=== PATIENT | female | born 1960 | race Caucasian/White ===

== ENCOUNTER 2022-12-13 06:19 | Day surgery (SDC) | payer BC ==
[2022-12-13] MEDS ORDERED: Lactated Ringers 1,000 ML IV ONE (06:56)
[2022-12-13] MEDS ORDERED: CEFAZOLIN 2 GM-D5W BAG** 2 GM/50 ML ML IV ONE (06:56)
[2022-12-13] MEDS ORDERED: Lactated Ringers 1,000 ML IV SCH (07:00)
[2022-12-13] MEDS ORDERED: Pepcid 20 MG VIAL IV ONE ×2 (07:03→07:09)
[2022-12-13] MEDS ORDERED: Transderm Scop 1.5MG Patch TOP PRN (07:03)
[2022-12-13] MEDS ORDERED: Transderm Scop 1.5MG Patch ONE (07:09)
[2022-12-13] MEDS ORDERED: CEFAZOLIN 2 GM-D5W BAG** 2 GM/50 ML ML IV SCH (07:30)
[2022-12-13] MEDS ORDERED: Zofran 4 MG/2 ML VIAL ONE (07:42)
[2022-12-13] MEDS ORDERED: DIPRIVAN 200 MG/20 ML IV ONE (07:42)
[2022-12-13] MEDS ORDERED: Versed 2 MG/2 ML Injection ONE (07:42)
[2022-12-13] MEDS ORDERED: Decadron 4 MG INJ ONE (07:42)
[2022-12-13] MEDS ORDERED: TORAdol 30 mg Injection ONE (07:42)
[2022-12-13] MEDS ORDERED: SUBLIMAZE 100 MCG/2 ML ONE (07:42)
[2022-12-13] MEDS ORDERED: Xylocaine-Mpf 2% 5 Ml Vial ONE (07:42)
[2022-12-13] MEDS ORDERED: Marcaine Mpf 0.5% Vial 30 Ml ONE (08:50)
[2022-12-13] MEDS ORDERED: XYLOCAINE 1% HCL 20 ML MDV ONE (08:50)
[2022-12-13] MEDS ORDERED: PHENYLEPHRINE HCL ONE (09:05)
[2022-12-13 10:14] VITALS: O2SAT 92
--- NOTE | 2022-12-13 10:41 | OP ---
SURGERY DATE: 12/13/2022 0904 PREOPERATIVE DIAGNOSES: 1) Neuroma third interspace left foot/Marquez neuroma. 2) Left foot pain. POSTOPERATIVE DIAGNOSES: 1) Neuroma third interspace left foot/Marquez neuroma. 2) Left foot pain. PROCEDURE: Excision of neuroma left third interspace. SURGEON: Girish Hutchinson DPM. ALTERNATIVE FINANCING SPECIALIST: None. ANESTHESIA: General. HEMOSTASIS: Ankle tourniquet set 250 mm of Mercury for 17 total tourniquet minutes. ESTIMATED BLOOD LOSS: Less than 2 cc. INJECTABLES: 10 cc of a 1:1 mixture of 1% lidocaine plain and 0.5% bupivacaine plain. INDICATION FOR PROCEDURE: Nancy is a very pleasant patient who is well known to my service for multiple issues. The patient has had a plantar plate tear to the ipsilateral foot, a significant plantar fibroma as well as a Marquez neuroma to the left lower extremity in the third web space that we have been treating subsequently. At this time the patient is not interested in a period of non-weightbearing and has opted to proceed with surgical intervention secondary to her pain to the left lower extremity. MRI was obtained demonstrating an approximately 5 mm lesion just distal to the metatarsal head of the left foot. At this time the patient was interested in proceeding with excision of this mass. The patient understands all risks, complications and benefits of surgical intervention including but not limited to infection, hematoma, seroma, possibility of delayed skin healing, nonskin healing, possibility of failure of surgical intervention and possibility of stump neuroma as well as possibility of numbness to the toes as this is a result of surgical intervention in this case. The patient understands all of these risks and wishes to proceed. No guarantees were provided as to the outcome. It is with that we decided to proceed. DESCRIPTION OF PROCEDURE AND FINDINGS: The patient was brought into the operating room and placed on the operating room table in supine position. At this time a well-padded thigh tourniquet was placed on the patient's left ankle and general anesthesia was administered until the patient was sedated. The left lower extremity was prepped and draped in the typical sterile fashion and lowered onto the surgical field. At this time attention was directed to the dorsal aspect of the fourth metatarsal web space where a small 2 cm incision was made from the web space just proximal to the metatarsal head. Layered dissection was carried down being careful not to damage any superficial neurovascular structures. At this time the intrinsic muscles were identified which were retracted out of the way. Deep transverse metatarsal ligament was then identified and resected utilizing a pair of tenotomy scissors and a hemostat supporting it from underneath. At this time the neuroma was identified. Four mini hemostats were utilized to clamp off the proximal and distal extents of the nerve, two were placed at the proximal aspect in double crush-type fashion. Electrocautery was utilized at the distal extent of the incision site at proximal nerve in the typical fashion to prevent stump neuroma. Following this, the distal extent of the neuroma slips into the third and fourth digit were then severed and handed off the field for pathologic assessment. At this time, copious amounts of sterile saline were utilized to flush the surgical site. 4-0 Monocryl was utilized to coapt the subcutaneous edges and 3-0 Nylon was utilized in a horizontal mattress-type fashion to coapt the skin edges in everted-type fashion. A dressing consisting of Betadine, Adaptic, 4x4, Kerlix and ANDREINA were then applied to the patient's left lower extremity. The patient was then returned to the postoperative anesthesia care unit with vital signs stable and vascular status intact. The patient handled the anesthesia as well as the procedure without significant complication. Postoperative orders as indicated in the patient's discharge chart.
[2022-12-13 10:42] VITALS: BP 117/73; PULSE 77
== END 2022-12-13 10:40 | disposition home or self-care (01) ==
LOC: SDC 06:19
PROVIDERS: ATTEND Podiatrist Foot & Ankle Surgery
DX: G57.62 Lesion of plantar nerve, left lower limb (principal); M79.672 Pain in left foot
CPT/HCPCS: 28080; J0690; J1100; J1885; J2250; J2370; J2405; J2704; J3010; A9270-GY

== ENCOUNTER 2024-05-04 05:47 | Day surgery (SDC) | payer BC ==
[2024-05-04] MEDS: Lactated Ringers 1,000 ML IV SCH (06:18)
[2024-05-04] MEDS: CEFAZOLIN 2 GM-D5W BAG** 2 GM/50 ML ML IV SCH (06:18)
[2024-05-04] MEDS ORDERED: Xylocaine 1% Vial 30 ML PF IJ ONE (08:22)
[2024-05-04] MEDS ORDERED: Marcaine Mpf 0.5% Vial 30 Ml ONE (08:22)
[2024-05-04] MEDS ORDERED: DIPRIVAN 200 MG/20 ML IV ONE (08:26)
[2024-05-04] MEDS ORDERED: SUBLIMAZE 100 MCG/2 ML ONE (08:38)
[2024-05-04] MEDS ORDERED: Decadron 4 MG INJ ONE (08:51)
[2024-05-04] MEDS ORDERED: Zofran 4 MG/2 ML VIAL ONE ×2 (08:51→09:42)
[2024-05-04] MEDS ORDERED: Compazine 10 MG/2 ML ONE (09:46)
[2024-05-04 10:52] VITALS: RESP 16
[2024-05-04 11:24] VITALS: O2SAT 92
[2024-05-04 11:31] VITALS: BP 112/51; PULSE 75; TEMP 98.9
--- NOTE | 2024-05-06 09:38 | OP ---
SURGERY DATE/TIME: 05/04/2024 [id number] PREOPERATIVE DIAGNOSES: 1) Left foot pain. 2) Left foot Marquez's neuroma. 3) Left foot plantar fibroma. POSTOPERATIVE DIAGNOSES: 1) Left foot pain. 2) Left foot Marquez's neuroma. 3) Left foot plantar fibroma. PROCEDURE: 1) Left Marquez's neuroma excision. 2) Left foot plantar fibroma excision. 3) Partial plantar fasciectomy. SURGEON: Girish Hutchinson DPM REGISTERED RADIOGRAPHER: None. ANESTHESIA: General with intraoperative block consisting of 20 mL of a 1:1 mixture of 1% lidocaine plain and 0.5% bupivacaine plain injected in an intermetatarsal block-type fashion as well as a V block-type fashion to the plantar fibroma. HEMOSTASIS: Ankle tourniquet set to 250 mmHg for a total of 38 total tourniquet minutes. QUANTITATIVE BLOOD LOSS: Approximately 3 mL. MATERIALS: 4-0 Monocryl, 3-0 nylon. INDICATIONS: The patient is a very pleasant 63-year-old female who is well known to my service for multiple issues to the left lower extremity. She does have a neuroma to the left foot that has caused her a significant amount of pain for some duration of time. 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 As a result, the patient has been having some pain in this area and would like revision intervention for this. Patient also does have a plantar plate tear underneath the second metatarsophalangeal joint that is causing her pain with weightbearing as well as a very painful plantar fibroma growing off of her plantar fascia underneath the ball of the foot, underneath the great toe. This causes her significant pain and she would like this removed as well. Patient has been made aware of all risks, complications, and benefits of surgical intervention at this time, including but not limited to infection, hematoma, seroma, possible delayed wound healing, nonwound healing and possible need for further surgical intervention at a later date. No guarantees were provided as to the outcome of surgical intervention at this time. At this time, we decided to proceed. DESCRIPTION OF PROCEDURE AND FINDINGS: Patient was brought in the operating room and placed on the operating room table in the supine position at this time. General anesthesia was administered and the left foot was prepped and draped in typical sterile fashion and lowered onto the surgical field. Prior to prep, a well-padded ankle tourniquet was applied and the tourniquet was set to 250 mmHg. Prior to inflation of the tourniquet, a block consisting of a 1:1 mixture of 1% lidocaine plain and 0.5% bupivacaine plain was injected in an intermetatarsal block type fashion between the third and fourth metatarsals of the left foot as well as in a V block fashion on the plantar aspect of the left foot, just leading to the medial branch of the plantar posterior tibial nerve. Following this, examination took place and the tourniquet was inflated. An incision was made approximately 6 cm in length over the dorsal aspect of the foot, extending into the webspace. Careful dissection was carried down to the level of the deep intermetatarsal ligament which was resected of scar tissue. Following this, a retractor was utilized to spread the metatarsals apart. Careful dissection was carried down, being careful not to damage any of the lumbricals or dorsal or plantar interossei on the way down to the plantar fat. Once the nerve was identified, its distal remnants were cleared which seemingly were more related to scar tissue. The stump was identified and approximately 2 cm behind this, a double crush was performed of the nerve. Resection of the nerve was performed and then the end was Bovied. From that standpoint, the nerve was let go and allowed to retract into the plantar aspect of the foot. Copious amounts of sterile saline were utilized to flush the surgical site and 4-0 Monocryl was utilized to coapt the subcutaneous skin edges and 4-0 nylon was utilized in a horizontal-mattress type fashion to the surgical incision. Following this, on the plantar aspect of the foot respective to the resting skin tension line, a curvilinear incision, lazy-S type incision, was carried over the central aspect of the palpable nodule on the fibroma. This was carried full thickness to the level of the fibroma perpendicular to the skin edges utilizing a 10 blade. Following this, the edges were full thickness elevated and the plantar fibroma as well as the plantars fascia was identified. The fibroma and the plantars fascia were excised in one piece. The windless mechanism was activated and deemed to be adequate at this time from that standpoint. Both pathologies were handed off the field for pathological assessment. Once again, copious amounts of sterile saline were utilized to flush the surgical site. Inspection of the plantars fascia was carried out to make sure that there was no further fibroma present of which there were none. Closure took place utilizing 4-0 Monocryl in a simple interrupted, buried type fashion as well as 3-0 nylon in a simple interrupted fashion. The wounds were then cleansed. A dressing consisting of Betadine, Adaptic, 4 x 4, Kerlix and Maxx was applied to the patient's left lower extremity. Patient was then reversed from anesthesia and returned to the postoperative anesthesia care unit with vital signs stable and vascular status intact. Patient handled the anesthesia as well as the procedure without significant complication. Postoperative orders as indicated in the patient's discharge chart.
== END 2024-05-04 11:45 | disposition home or self-care (01) ==
LOC: SDC 05:47
PROVIDERS: ATTEND Podiatrist Foot & Ankle Surgery
DX: G57.62 Lesion of plantar nerve, left lower limb (principal); M79.672 Pain in left foot; D21.22 Benign neoplasm of connective and other soft tissue of left lower limb, including hip
CPT/HCPCS: 28045; 28060; 28080; J0690; J1100; J2405; J2704; J3010